=== PATIENT | female | born 1955 | race Caucasian/White ===

== ENCOUNTER 2022-01-25 21:13 | Emergency (ER) | payer OTHER, SELFPAY ==
[2022-01-25 21:51] VITALS: BP 186/99; PULSE 102; RESP 18; TEMP 36.6; O2SAT 98; BMI 23.6
--- NOTE | 2022-01-25 22:07 | DI.CT.S_ITS ---
PROCEDURE: CT ABDOMEN PELVIS W CON INDICATIONS: abd pain, hx of bowel blockage after colon ca TECHNIQUE: After the administration of intravenous contrast, axial sections acquired from the lung bases to the pubic symphysis. Coronal and sagittal reformats were performed. For radiation dose reduction, the following was used: automated exposure control, adjustment of mA and/or kV according to patient size. COMPARISON: None. FINDINGS: Image quality: Excellent. Lung bases: Unremarkable. Heart: No significant findings. ABDOMEN: Liver: Unremarkable. Gallbladder: Unremarkable. Biliary ducts: Unremarkable. Pancreas: Unremarkable. Spleen: Unremarkable. Adrenal Glands: Unremarkable. Kidneys and Ureters: Unremarkable. Stomach and Bowel: Stomach, upper abdominal small bowel loops, and distal colon colon are unremarkable. There is surgical change of what appears to be a right hemicolectomy with ileocolonic anastomosis at the right mid abdomen, and note is made of small bowel fluid prominence proximal to this anastomosis, but without identifiable mass, intussusception or volvulus. Peritoneum: No abnormal intraperitoneal fluid. No free air. Ventral Wall: No hernias. Abdominal Nodes: No retroperitoneal or mesenteric adenopathy by size criteria. Vessels: Aorta and inferior vena cava are normal in size. PELVIS: Pelvic Organs: Unremarkable. Bladder: Unremarkable. Pelvic Nodes: No enlarged lymph nodes. Miscellaneous: No hernias are seen. Bones: Unremarkable. IMPRESSION: Ileocolonic anastomosis after right hemicolectomy, with mild small bowel fluid prominence proximal to the anastomosis. A discrete mass or adenopathy is not seen. A postoperative adhesion could explain this appearance. Through the visualized lower chest, abdomen and pelvis no definite metastatic disease is seen. Dictated by: Natan Curran M.D. on 01/25/2022 at 22:53 Approved by: Natan Curran M.D. on 01/25/2022 at 22:58
[2022-01-25] MEDS: KETOROLAC 30 MG/ML VIAL 15 MG IV (22:11)
[2022-01-25] MEDS: ONDANSETRON 4 MG/2 ML INJ IV (22:13)
[2022-01-25 22:23] LABS: Add Manual Diff / Slide Review NO; Basophils Absolute Auto 0 /uL (0-100); Basophils Percent Auto 0.4 % (0-2); Eosinophils Absolute Auto 0 /uL (0-450); Eosinophils Percent Auto 0.4 % (2-4); Hematocrit 45.8 % (36-46); Hemoglobin 15.9 g/dL (12.0-16.0); Lymphocytes Absolute Auto 700 /uL (1100-4500); Lymphocytes Percent Auto 8.1 % (25-40); Mean Corpuscular HGB Conc 34.8 % (30-36); Mean Corpuscular Hemoglobin 32.8 PG (26-34); Mean Corpuscular Volume 94.2 fL (80-100); Monocytes Absolute Auto 500 /uL (0-900); Monocytes Percent Auto 5.4 % (3-14); Neutrophils Absolute Auto 7900 /uL (1500-7000); Neutrophils Percent Auto 85.7 % (50-75); Platelet Count 193 X10^3/uL (150-400); Red Blood Cell Count 4.86 X10^6/uL (4.0-5.2); Red Cell Distribution Width 12.2 % (11.6-14.8); White Blood Cell Count 9.2 X10^3/uL (4.5-11.0)
[2022-01-25 22:31] LABS: Alanine Aminotransferase 28 IU/L (<35); Albumin 4.6 g/dL (3.5-5.0); Albumin Globulin Ratio 1.4 (1.0-2.8); Alkaline Phosphatase 79 U/L (38-126); Aspartate Aminotransferase 28 IU/L (14-36); BUN Creatinine Ratio 22.9 (6-22); Bilirubin Total 0.8 mg/dL (0.2-1.3); Blood Urea Nitrogen 19 mg/dL (7-17); Calcium 9.8 mg/dL (8.4-10.2); Carbon Dioxide 28 mmol/L (22-32); Chloride 98 mmol/L (98-107); Estimated Glomerular Filt Rate > 60 mL/min (>60); Globulin 3.3 g/dL (1.7-4.1); Glucose 140 mg/dL (80-110); HEMOLYSIS < 15 (0-50); Lipase 66 U/L (23-300); Potassium 4.1 mmol/L (3.4-5.1); Sodium 136 mmol/L (137-145); Total Protein 7.9 g/dL (6.3-8.2)
[2022-01-25 23:52] VITALS: BP 198/89
[2022-01-25 23:53] VITALS: BP 198/89; PULSE 112; PULSE 116; RESP 18; TEMP 37.2; O2SAT 97
[2022-01-26] VITALS: PULSE 104; O2SAT 94
[2022-01-26 00:30] VITALS: PULSE 99; O2SAT 96
--- NOTE | 2022-01-26 02:21 | ED_ITS ---
HPI - Abdominal Pain General Chief Complaint: Abdominal Pain Stated Complaint: ABD. PAIN Time Seen by Provider: 01/25/22 22:06 Source: patient Mode of arrival: Ambulatory History of Present Illness HPI narrative: This is a 66-year-old female with prior history of stage I colon cancer treated with resection only who presents with complaint of abdominal pain that started 2:00 a.m. yesterday on the . Patient states since then she is been nauseated she did not eat or drink anything for about 20 hours then drank some fluids and had a sandwich she states she had a lot of fluids come out the sand which seemed to stated. She denies fevers or chills. She is had nausea she has not had additional vomiting since then but has not been taking anything orally. She states she has not really had a bowel movement in the last day or 2 and does not believe she is passing any flatus. Pain is sort of in the right side of her abdomen. She has not had any known prior bowel obstructions. She has had other orthopedic surgeries in the past but denies other intra-abdominal surgery. Her surgery was performed in [place] where she used to live. She has relocated to this area. Patient denies other medical issues or daily medications. No known drug allergies. No tobacco for 30 years, she drinks 3 alcoholic drinks most days of the week, no illicit or recreational drugs. Related Data Previous Rx's Medication Instructions Recorded hydrocodone 5 mg-acetaminophen 325 1 tab PO QID PRN pain #7 tabs 01/26/22 mg tablet Allergies Allergy/AdvReac Type Severity Reaction Status Date / Time No Known Drug Allergies Allergy Verified 01/25/22 21:51 Review of Systems Review of Systems ROS Unobtainable: All systems reviewed & are unremarkable except as noted in HPI and below Patient History Social History Smoking Status: Never smoker Smoking Status: Never smoker alcohol intake frequency: 3 or more drinks per day Alcohol type: wine Substance Use Type: does not use Exam Narrative Exam Narrative: GENERAL: Alert and oriented x three, female in mild distress HEENT: Head normocephalic, atraumatic, EOMI, pupils reactive, face symmetric, moist mucous membranes NECK: Supple, full range of motion CARDIOVASCULAR: Regular rate and rhythm without murmurs, rubs or gallops. RESPIRATORY: Breath sounds equal bilaterally, no wheezes rales or rhonchi. ABDOMEN: Soft, positive for right-sided tenderness. Normoactive bowel sounds all 4 quadrants. No guarding or rebound, rigidity, no mass : No CVA tenderness EXTREMITIES: Normal range of motion, no clubbing or edema. Neurovascularly intact NEUROLOGICAL: Cranial nerves II through XII grossly intact. Moving all extremities SKIN: Warm, dry, no petechiae, no rashes or lesions. Initial Vital Signs Initial Vital Signs: Vital Signs Temperature 97.9 F 01/25/22 21:51 Pulse Rate 102 H 01/25/22 21:51 Respiratory Rate 18 01/25/22 21:51 Blood Pressure 186/99 H 01/25/22 21:51 Pulse Oximetry 98 01/25/22 21:51 Oxygen Delivery Method 01/25/22 21:51 Course Orders Ordered: ED Orders 01/25/22 22:00 Complete Blood Count AUTO DIFF Stat Comprehensive Metabolic Panel Stat Lipase Stat 01/25/22 22:07 CT abdomen pelvis w con Stat Discontinued Medications Hydrocodone Bitart/Acetaminophen (Hydrocodone/Acet 5/325 Prepack) 1 bottle MISC SEEINSTR ONE Stop: 01/26/22 02:45 Last Admin: 01/26/22 02:53 Dose: 1 bottle Documented By: MAURI Ketorolac Tromethamine (Ketorolac 30 Mg/Ml Vial) 15 mg IV NOW ONE Stop: 01/25/22 22:07 Last Admin: 01/25/22 22:11 Dose: 15 mg Documented By: MAURI Morphine Sulfate (Morphine 2 Mg/Ml Inj) 2 mg IV NOW ONE Stop: 01/26/22 02:33 Last Admin: 01/26/22 02:36 Dose: 2 mg Documented By: MAURI Ondansetron HCl (Ondansetron 4 Mg/2 Ml Inj) 4 mg IV NOW ONE Stop: 01/25/22 21:57 Last Admin: 01/25/22 22:13 Dose: 4 mg Documented By: MAURI Ondansetron HCl (Ondansetron 4 Mg Odt Prepack) 1 bottle MISC SEEINSTR ONE Stop: 01/26/22 02:45 Last Admin: 01/26/22 02:53 Dose: 1 bottle Documented By: MAURI Consultations Consultation #1: Dr. Wright, general surgery. Reviewed patient's symptoms labs and imaging findings today she is not quite sure what to make of this if patient felt needed to come in she would accept is felt appropriate for follow-up she would be happy to see in the office. Time: 02:37 Vital Signs Vital signs: Vital Signs - 8 hr 01/25/22 21:51 01/25/22 23:53 01/26/22 02:49 Temperature 97.9 F 98.9 F Pulse Rate 102 H 116 H 111 H Respiratory Rate 18 18 Blood Pressure 186/99 H 198/89 H 153/87 H Pulse Oximetry 98 97 Oxygen Delivery Method Room Air Room Air 01/25/22 23:52 01/25/22 23:53 01/26/22 00:00 Temperature Pulse Rate 112 H 104 H Respiratory Rate Blood Pressure 198/89 H Pulse Oximetry 97 94 Oxygen Delivery Method 01/26/22 00:30 Temperature Pulse Rate 99 H Respiratory Rate Blood Pressure Pulse Oximetry 96 Oxygen Delivery Method MDM - Abdominal Pain Lab Data Result diagrams: 01/25/22 22:00 01/25/22 22:00 Labs: Lab Results 01/25/22 01/25/22 Range/Units 22:00 22:00 WBC 9.2 (4.5-11.0) X10^3/uL RBC 4.86 (4.0-5.2) X10^6/uL Hgb 15.9 (12.0-16.0) g/dL Hct 45.8 (36-46) % MCV 94.2 (80-100) fL MCH 32.8 (26-34) PG MCHC 34.8 (30-36) % RDW 12.2 (11.6-14.8) % Plt Count 193 (150-400) X10^3/uL Neut % (Auto) 85.7 H (50-75) % Lymph % (Auto) 8.1 L (25-40) % Orange % (Auto) 5.4 (3-14) % Eos % (Auto) 0.4 L (2-4) % Baso % (Auto) 0.4 (0-2) % Neut # (Auto) 7900 H (5690-8490) /uL Lymph # (Auto) 700 L (1139-9154) /uL Orange # (Auto) 500 (0-900) /uL Eos # (Auto) 0 (0-450) /uL Baso # (Auto) 0 (0-100) /uL Sodium 136 L (137-145) mmol/L Potassium 4.1 (3.4-5.1) mmol/L Chloride 98 (98-107) mmol/L Carbon Dioxide 28 (22-32) mmol/L BUN 19 H (7-17) mg/dL Creatinine 0.83 (0.52-1.04) mg/dL Estimated GFR > 60 (>60) mL/min BUN/Creatinine Ratio 22.9 H (6-22) Glucose 140 H (80-110) mg/dL Calcium 9.8 (8.4-10.2) mg/dL Total Bilirubin 0.8 (0.2-1.3) mg/dL AST 28 (14-36) IU/L ALT 28 (<35) IU/L Alkaline Phosphatase 79 (38-126) U/L Total Protein 7.9 (6.3-8.2) g/dL Albumin 4.6 (3.5-5.0) g/dL Globulin 3.3 (1.7-4.1) g/dL Albumin/Globulin Ratio 1.4 (1.0-2.8) Lipase 66 (23-300) U/L Point of care testing: Urine Dip Bedside Urine Glucose Negative Bedside Urine Bilirubin - Negative Bedside Urine Ketone +/- 5 Urine Specific Krypton 1.005 Bedside Urine Occult Blood +/- Bedside Urine pH 5.0 Bedside Urine Protein +/- 15 Bedside Urine Urobilinogen - Negative Bedside Urine Nitrite - Negative Bedside Urine Leukocytes - Negative Esterase Imaging Data CT scan - abdomen/pelvis: Radiologist's Impression: Serena Madsen??66??F??1955 ? Allergy/Adv: No Known Drug Allergies Close Abdomen/Pelvis CT (Signed) Natan Curran - 01/25/22 Launch?[address] [address] [address] Scan Report Signed Patient: Serena Madsen MR#: [id number] : 1955 Acct:[id number] Age/Sex: 66 / F Date of Service: 01/25/22 Loc: ED Accession Number: [id number] ?? Procedure: CT abdomen pelvis w con Ordering Provider: Mank,Rebecca C D.O. PROCEDURE:? CT ABDOMEN PELVIS W CON ? INDICATIONS:? abd pain, hx of bowel blockage after colon ca ? TECHNIQUE:? After the administration of intravenous contrast, axial sections acquired from the lung bases to the pubic symphysis.? Coronal and sagittal reformats were performed.? For radiation dose reduction, the following was used:? automated exposure control, adjustment of mA and/or kV according to patient size.? ? COMPARISON:? None. ? FINDINGS:? Image quality:? Excellent.? ? Lung bases:? Unremarkable. Heart:? No significant findings. ? ABDOMEN: Liver:? Unremarkable.? ? Gallbladder:? Unremarkable.? ? Biliary ducts:? Unremarkable.? ? Pancreas:? Unremarkable.? ? Spleen:? Unremarkable.? ? Adrenal Glands:? Unremarkable.? ? Kidneys and Ureters:? Unremarkable.? ? ? Stomach and Bowel:? Stomach, upper abdominal small bowel loops, and distal colon colon are unremarkable.? There is surgical change of what appears to be a right hemicolectomy with ileocolonic anastomosis at the right mid abdomen, and note is made of small bowel fluid prominence proximal to this anastomosis, but without identifiable mass, intussusception or volvulus. Peritoneum:? No abnormal intraperitoneal fluid.? No free air.? ? Ventral Wall: ? No hernias.? Abdominal Nodes:? No retroperitoneal or mesenteric adenopathy by size criteria.? Vessels:? Aorta and inferior vena cava are normal in size.? ? PELVIS: Pelvic Organs:? Unremarkable.? ? Bladder:? Unremarkable.? ? Pelvic Nodes: No enlarged lymph nodes.? Miscellaneous: No hernias are seen. ? ? ? Bones:? Unremarkable.? IMPRESSION:? Ileocolonic anastomosis after right hemicolectomy, with mild small bowel fluid prominence proximal to the anastomosis.? A discrete mass or adenopathy is not seen. ?A postoperative adhesion could explain this appearance. ? Through the visualized lower chest, abdomen and pelvis no definite metastatic disease is seen. ? ? Dictated by: Natan Curran M.D. on 01/25/2022 at 22:53 ? ? Approved by: Natan Curran M.D. on 01/25/2022 at 22:58?? MDM Narrative Medical decision making narrative: 66-year-old female with report of abdominal, 1 episode of vomiting and no bowel movement for last 24 hours in unsure but does not think she is been having flatus. Labs are reassuring overall, CT shows some proximal fluid to the anastomosis but no obvious obstruction, no other clear cause of symptomatology today she does have a prior right hemicolectomy from prior stage I colon cancer and never received chemo or radiation. Patient had improvement with pain medication symptoms are starting to return it is too early for an additional Toradol so was given a dose of morphine. Discussed with General surgery. Patient and I discussed their thoughts plan for watchful waiting return precautions and Zofran and [place] prepack. Patient is slightly tachycardic and hypertensive likely secondary to some withdrawal symptoms she has not had any alcohol today. Discharge Plan Departure Patient Disposition: Home Clinical Impression: Abdominal pain Instructions: DI for Abdominal Pain-Adult Activity Restrictions/Additional Instructions: Please follow-up with General surgery for recheck if your symptoms have not completely resolved in the next 24 hours. Referral is included below call on Thursday morning, Your imaging today shows some fluid proximal to the anastomosis from your prior surgery but no obvious obstruction. You may take Zofran 1 tablet every 6 hours as needed for nausea. You can take Tylenol and/or ibuprofen as needed for pain. If in adequate take [place] 1-2 tablets every 6 hours as needed. Do not take this medication at the same time is taking Tylenol. This medication can make you sleepy do not drive, perform hazardous activities or make any major decisions while taking it. This medication will make you constipated please take a stool softener once to twice daily until stools are soft and regular. Please return for fevers worsening abdominal pain, persistent vomiting if you are continuing to not have any stool output or passing gas or other new or concerning symptoms. Prescriptions: New hydrocodone-acetaminophen 5-325 mg tablet 1 tab PO QID PRN (Reason: pain) Qty: 7 0RF Referrals: Oly Wright MD [Physician] - Visit Report Forms: Patient Portal/API
[2022-01-26] MEDS: MORPHINE 2 MG/ML INJ IV (02:36)
[2022-01-26 02:49] VITALS: BP 153/87; PULSE 111
[2022-01-26] MEDS: HYDROCODONE/ACET 5/325 PREPACK 1 BOTTLE MISC (02:53)
[2022-01-26] MEDS: ONDANSETRON 4 MG ODT PREPACK 1 BOTTLE MISC (02:53)
== END 2022-01-26 03:29 | disposition home or self-care (01) ==
PROVIDERS: Emergency Provider Emergency Medicine; Family Provider Family Medicine
DX: R10.9 Unspecified abdominal pain (principal); R11.2 Nausea with vomiting, unspecified
CPT/HCPCS: 36415; 74177; 80053; 81003; 83690; 85025; 96374; 96375; 99284; J1885; J2270; J2405; Q9967

== ENCOUNTER 2025-03-04 10:54 | Emergency (ER) | payer OTHER, MEDICARE, SELFPAY ==
[2025-03-04 11:03] VITALS: BP 200/83; PULSE 89; RESP 16; O2SAT 96
--- NOTE | 2025-03-04 11:06 | EKG_ITS ---
[address] [address] [address] [address] Test Date: 2025-03-04 Pat Name: Serena Madsen Department: Room: Gender: Female [employer] Apprentice: MEGHANA : 1955 Requested By: Order Number: [id number] Reading MD: Nico Page MD Measurements Intervals Randall Rate: 85 P: 74 SD: 152 QRS: 0 QRSD: 80 T: 41 QT: 356 QTc: 423 Interpretive Statements Normal sinus rhythm Electronically Signed On 03-12-2025 9:02:03 PST by Nico Page MD
--- NOTE | 2025-03-04 11:12 | DI.RAD.S_ITS ---
PROCEDURE: XR CHEST 1V INDICATIONS: Chest Pain TECHNIQUE: One view of the chest was acquired. COMPARISON: None. FINDINGS: Surgical changes and devices: None. Lungs and pleura: Lungs are clear. No pleural effusions or pneumothorax. Mediastinum: Mediastinal contours appear normal. Heart size is normal. Bones and chest wall: No suspicious bony lesions. Overlying soft tissues appear unremarkable. IMPRESSION: No acute cardiopulmonary abnormality is seen. Approved by: John Nunez M.D. on 03/04/2025 at 10:41
[2025-03-04 11:17] VITALS: BP 200/83; PULSE 88; RESP 18; TEMP 36.5; O2SAT 99; BMI 24.0
[2025-03-04 11:29] LABS: Add Manual Diff / Slide Review NO; Hematocrit 40.1 % (36-46); Hemoglobin 13.9 g/dL (12.0-16.0); Lymphocytes Absolute Auto 1200 /uL (1100-4500); Mean Corpuscular HGB Conc 34.7 % (30-36); Mean Corpuscular Hemoglobin 32.5 PG (26-34); Mean Corpuscular Volume 93.6 fL (80-100); Platelet Count 212 X10^3/uL (150-400)
[2025-03-04 11:30] VITALS: BP 167/78; PULSE 79; RESP 17; O2SAT 97
[2025-03-04 11:37] LABS: INR 1.0 (0.9-1.3); Prothrombin Time 11.2 SECONDS (9.4-12.5)
[2025-03-04 11:40] LABS: PTT Partial Thromboplastin Tim 27 SECONDS (25.1-36.5)
[2025-03-04 11:44] LABS: Alanine Aminotransferase 30 IU/L (<35); Albumin 4.3 g/dL (3.5-5.0); Albumin Globulin Ratio 1.7 (1.0-2.8); Alkaline Phosphatase 61 U/L (38-126); Blood Urea Nitrogen 14 mg/dL (7-17); Calcium 9.3 mg/dL (8.4-10.2); Carbon Dioxide 25 mmol/L (22-32); Chloride 102 mmol/L (98-107); Creatine Kinase 37 U/L (30-135); Estimated Glomerular Filt Rate > 60 mL/min (>60); Globulin 2.6 g/dL (1.7-4.1); Glucose 164 mg/dL (70-99); HEMOLYSIS < 15 (0-50); Lipase 125 U/L (23-300); Magnesium 1.8 mg/dL (1.6-2.3); Potassium 4.1 mmol/L (3.4-5.1); Sodium 136 mmol/L (137-145); Total Protein 6.9 g/dL (6.3-8.2)
--- NOTE | 2025-03-04 11:49 | ED_ITS ---
HPI - General Adult General Chief complaint: Hypertension Stated complaint: High heart rate and BP Time Seen by Provider: 03/04/25 11:12 Source: patient and family Mode of arrival: Family Vehicle History of Present Illness HPI narrative: Patient is a 69-year-old female history of hypertension presenting today with heart palpitations. She reports that she felt her heart rate go up she had dizzy lightheaded short of breath felt like she was going to pass out. EMS was called and found her heart rate to be 110 in her blood pressure is quite elevated at systolic 200/100. She does have an Apple watch on an it recorded her heart rate is fast as 148. She is now in a sinus rhythm and blood pressure is coming down without any issue. She has never had any arrhythmia before. And she did not pass out she just felt like she was going to. Related Data Previous Rx's ?Medication ?Instructions ?Recorded hydrocodone 5 mg-acetaminophen 325 1 tab PO QID PRN pa in #7 tabs 01/26/22 mg tablet Allergies Allergy/AdvReac Type Severity Reaction Status Date / Time No Known Drug Allergies Allergy Verified 03/04/25 11:14 Patient History Social History Smoking Status: Former smoker Smoking Status: Former smoker tobacco type: cigarettes alcohol intake frequency: 3 or more drinks per day Alcohol type: wine Exam Initial Vital Signs Initial Vital Signs: Vital Signs Pulse Rate 89 03/04/25 11:03 Respiratory Rate 16 03/04/25 11:03 Blood Pressure 200/83 H 03/04/25 11:03 Pulse Oximetry 96 03/04/25 11:03 Oxygen Delivery Method Room Air 03/04/25 11:03 GENERAL: Alert well-appearing 69-year-old female and in no acute distress. HEENT: Head atraumatic,EOMI, pupils reactive, face symmetric, moist mucous membranes CARDIOVASCULAR: Regular rate and rhythm without murmurs, rubs or gallops. RESPIRATORY: Breath sounds equal bilaterally, no wheezes rales or rhonchi. ABDOMEN: Soft, nontender. Normoactive bowel sounds all 4 quadrants. No guarding or rebound. EXTREMITIES: Normal range of motion, no clubbing or edema. Neurovascularly intact NEUROLOGICAL: Alert and oriented x4.Normal gait and speech. Cranial nerves II through XII grossly intact. SKIN: Warm, dry, no laceration, no petechiae, no rashes or lesions. Course Orders Ordered: ED Orders 03/04/25 11:12 XR chest 1V Stat EKG-12 Lead Stat 03/04/25 11:15 Complete Blood Count AUTO DIFF Stat Comprehensive Metabolic Panel Stat Lipase Stat Magnesium Stat NT-proBNP (BNP-Adult 18+) Stat PTT Partial Thromboplastin Kenneth Stat Prothrombin Time INR Stat Troponin & CK Cardiac Panel Stat Discontinued Medications Aspirin (Aspirin 81 Mg Chew Tab) 324 mg PO NOW ONE Stop: 03/04/25 11:13 Last Admin: 03/04/25 11:13 Dose: Not Given Documented By: ESTELA Vital Signs Vital signs: Vital Signs - 8 hr 03/04/25 11:03 03/04/25 11:03 03/04/25 11:17 Temperature 97.7 F Pulse Rate 89 88 Respiratory Rate 16 18 Blood Pressure 200/83 H 200/83 H Pulse Oximetry 96 99 Oxygen Delivery Method Room Air Room Air 03/04/25 11:30 03/04/25 11:30 03/04/25 12:00 Temperature Pulse Rate 79 79 Respiratory Rate 17 Blood Pressure 167/78 H Pulse Oximetry 97 96 Oxygen Delivery Method 03/04/25 12:17 Temperature Pulse Rate 78 Respiratory Rate 17 Blood Pressure 167/78 H Pulse Oximetry 98 Oxygen Delivery Method Room Air Medical Decision Making Lab Data 03/04/25 11:15 03/04/25 11:15 Labs: Lab Results 03/04/25 Range/Units 11:15 WBC 5.8 (4.5-11.0) X10^3/uL RBC 4.29 (4.0-5.2) X10^6/uL Hgb 13.9 (12.0-16.0) g/dL Hct 40.1 (36-46) % MCV 93.6 (80-100) fL MCH 32.5 (26-34) PG MCHC 34.7 (30-36) % RDW 12.0 (11.6-14.8) % Plt Count 212 (150-400) X10^3/uL Neut % (Auto) 70.1 (50-75) % Lymph % (Auto) 21.0 L (25-40) % [place] % (Auto) 7.7 (3-14) % Eos % (Auto) 0.4 L (2-4) % Baso % (Auto) 0.8 (0-2) % Neut # (Auto) 4000 (2662-7184) /uL Lymph # (Auto) 1200 (2891-7418) /uL [place] # (Auto) 400 (0-900) /uL Eos # (Auto) 0 (0-450) /uL Baso # (Auto) 0 (0-100) /uL PT 11.2 (9.4-12.5) SECONDS INR 1.0 (0.9-1.3) APTT 27 (25.1-36.5) SECONDS Sodium 136 L (137-145) mmol/L Potassium 4.1 (3.4-5.1) mmol/L Chloride 102 (98-107) mmol/L Carbon Dioxide 25 (22-32) mmol/L BUN 14 (7-17) mg/dL Creatinine 0.84 (0.52-1.04) mg/dL Estimated GFR > 60 (>60) mL/min BUN/Creatinine Ratio 16.7 (6-22) Glucose 164 H (70-99) mg/dL Calcium 9.3 (8.4-10.2) mg/dL Magnesium 1.8 (1.6-2.3) mg/dL Total Bilirubin 0.3 (0.2-1.3) mg/dL AST 27 (14-36) IU/L ALT 30 (<35) IU/L Alkaline Phosphatase 61 (38-126) U/L Total Creatine Kinase 37 (30-135) U/L Troponin I < 0.012 (0.01-0.034) ng/mL NT-Pro-B Natriuret Pep 184 H (<125) pg/mL Total Protein 6.9 (6.3-8.2) g/dL Albumin 4.3 (3.5-5.0) g/dL Globulin 2.6 (1.7-4.1) g/dL Albumin/Globulin Ratio 1.7 (1.0-2.8) Lipase 125 (23-300) U/L Imaging Data Chest x-ray: Radiologist's Impression: PROCEDURE: XR CHEST 1V INDICATIONS: Chest Pain TECHNIQUE: One view of the chest was acquired. COMPARISON: None. FINDINGS: Surgical changes and devices: None. Lungs and pleura: Lungs are clear. No pleural effusions or pneumothorax. Mediastinum: Mediastinal contours appear normal. Heart size is normal. Bones and chest wall: No suspicious bony lesions. Overlying soft tissues appear unremarkable. IMPRESSION: No acute cardiopulmonary abnormality is seen. Approved by: John Nunez M.D. on 03/04/2025 at 10:41 ECG Data Attestation: I personally reviewed and interpreted this ECG as follows: Prior ECG tracings: not available for review Interpretation: Normal sinus rhythm rate 85 [place] interval 152 QRS [address] changes no T- wave inversion MDM Narrative Medical decision making narrative: MDM CC: Palpitations Complicating co-morbidities: Hypertension Data collected from: Patient and Medical records reviewed: Differential considered: Ventricular arrhythmia atrial arrhythmia SVT, electrolyte abnormality, anemia Exam documented above, pertinent findings include: Alert well-appearing 69-year-old female heart is regular breath sounds clear Lab Test results independently reviewed as above. Pertinent findings: CBC no leukocytosis no anemia Electrolyte sodium slightly low 136 but stable for her potassium is 4.1 creatinine 0.8 glucose 162 Mag is 1.8 Bilirubin liver enzymes within normal limits Troponin is negative BNP is 184 Independently reviewed EKG as above Sinus rhythm no ischemia Imaging studies independently reviewed: Chest x-ray no acute cardiopulmonary process Treatments: None Re-evaluations: Patient remains in sinus rhythm on the monitor blood pressure has improved heart rate remained stable Discussion: Patient is 69-year-old female presenting today with her palpitations. She has a normal sinus rhythm here initially she was quite hypertensive however blood pressure has improved without any intervention. She has no significant electrolyte abnormality no anemia no leukocytosis. Chest x- ray does not show any cardiopulmonary process. At this time recommend outpatient workup with a Holter monitor. We discussed using a apple watch which she has and setting it up for cardiac monitoring also strict return precautions Discharge Plan Departure Patient Disposition: Home Clinical Impression: Heart palpitations Instructions: Arrhythmias Activity Restrictions/Additional Instructions: *You have been diagnosed with palpitation *What to do: At this time I would wear your watch and said it up it may alert you. I also recommend an outpatient Holter monitor which can be ordered by your primary care provider *Continue to take medications as directed *Follow up with your primary care provider in 2-3 days or call [phone] *Return to ER if you should have increase her palpitations dizziness lightheadedness passing out or any new, worsening or concerning symptoms Prescriptions: No Action hydrocodone-acetaminophen 5-325 mg tablet 1 tab PO QID PRN (Reason: pain) Qty: 7 0RF Stand Alone Forms: Patient Portal/API
[2025-03-04 11:55] LABS: NT-proBNP (BNP-Adult 18+) 184 pg/mL (<125); Troponin I < 0.012 ng/mL (0.01-0.034)
[2025-03-04 12:00] VITALS: PULSE 79; O2SAT 96
[2025-03-04 12:17] VITALS: BP 167/78; PULSE 78; RESP 17; O2SAT 98
== END 2025-03-04 12:18 | disposition home or self-care (01) ==
PROVIDERS: Emergency Provider Emergency Medicine
DX: R00.2 Palpitations (principal); I10 Essential (primary) hypertension; R07.9 Chest pain, unspecified
CPT/HCPCS: 36415; 71045; 80053; 82550; 83690; 83735; 83880; 84484; 85025; 85610; 85730; 93005; 99283; 99284